=== PATIENT | female | born 1975 | race Caucasian/White ===

== ENCOUNTER 2018-11-20 12:46 | Emergency (ER) | payer OTHER ==
[2018-11-20] MEDS ORDERED: IBUPROFEN 600 MG TAB PO ONE (13:36)
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
[2018-11-20 14:08] VITALS: BP 137/94
== END 2018-11-20 14:08 | disposition home or self-care (01) ==
DX: S39.012A Strain of muscle, fascia and tendon of lower back, initial encounter (principal); S16.1XXA Strain of muscle, fascia and tendon at neck level, initial encounter; V49.49XA Driver injured in collision with other motor vehicles in traffic accident, initial encounter; Y92.410 Unspecified street and highway as the place of occurrence of the external cause; Y99.9 Unspecified external cause status; Y93.9 Activity, unspecified